=== PATIENT | female | born 1980 | race Caucasian/White ===

== ENCOUNTER 2016-11-04 14:56 | Emergency (ER) ==
--- NOTE | 2016-11-04 15:41 | PROVIDER DOCUMENTATION ---
HPI-Musculoskeletal Pain/Inj - GENERAL Chief Complaint: Neck Pain Stated Complaint: LEFT SIDE NUMBNESS,LIGHTHEADED Time Seen by Provider: 11/04/16 15:08 Source: patient - HX OF PRESENT ILLNESS-MUSKULOSKELTAL Nature of Presenting Problem: Pt is a 36 yof that presents to er with cc of left sided neck pain sharp that radiated down left arm and left leg and reports left sided numbness now. Reports Had MRI last week reports two bulging disc and states has appointment with ortho spine on November 24. Denies urinary and bladder symptoms. Takes norco daily. Reports took last one today. 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 denies: joint pain, joint swelling, muscle aches Integumentary: reports: no symptoms reported Neurological: reports: numbness. denies: paresthesia, seizure, slurred speech Psychiatric: reports: no symptoms reported Endocrine: reports: no symptoms reported Hematologic/Lymphatic: reports: no symptoms reported Allergic/Immunologic: reports: no symptoms reported All Other Systems: Reviewed and Negative Past History - Adult - PAST MEDICAL HISTORY-ADULT Review of Records: reports: Nursing Assessment Review, Medications Reviewed Major Childhood Illnesses: reports: denies history Musculoskeletal: reports: chronic pain Psychiatric: reports: anxiety - PRIOR SURGERIES/PROCEDURES Surgical/Procedure History: reports: appendectomy, orthopedic (extremity) - IMMUNIZATION STATUS Childhood Immunizations: See Nurse Assessment Flu Vaccine: See Nurse Assessment - SOCIAL HISTORY Smoking: cigarettes, less than 1 pack/day Provider spent 3-5 mins advising pt. on dangers of tobacco.: Discussed manners to quit use, and f/u contacts for add'l counseling. Substance Use: alcohol Physical Exam-Injury Related - Physical Exam-Injury Related Initial Vital Signs Reviewed: Yes General Appearance: appears well, alert, no apparent distress Eyes: PERRL/EOMI, pink conjunctivae Head, Ears, Nose, Mouth & Throat: moist mucous membranes, normal ENT inspection , TMs normal, pharynx normal Neck: full range of motion, supple, normal inspection, muscle spasm (left lateral) Respiratory: chest non-tender, lungs clear, normal breath sounds, no pleuratic chest pain, no respiratory distress, no accessory muscle use Cardiovascular: regular rate, rhythm Abdominal Exam: normal bowel sounds, non tender, soft, no organomegaly, no pulsatile mass Extremity: normal range of motion, non-tender, normal gait Integumentary: normal color, warm/dry Psych/Mental Status: normal mood/affect, normal thought content, normal thought process, oriented x 3 - Glascow Coma Score Best Eye Response ([place]): (4) open spontaneously Best Verbal Response ([place]): (5) oriented Best Motor Response (Renée): (6) obeys commands Renée Total: 15 Progress - PLAN OF CARE/RESULTS Progress/Plan/Lab Results: Reviewed old records which presents pt is a chronic pain pt [facility] Vital Signs - 24 hr 11/04/16 15:00 Temperature 98.1 F Pulse Rate 83 Respiratory 20 Rate Blood Pressure 132/71 O2 Sat by Pulse 100 Oximetry Pt refused blood work,cardiac workup and further imaging reports wants pain medications. - EKG 1 Time of EKG reading by physician:: 15:03 EKG Read and Signed by:: Agustin Ayers EKG Interpretation (*Must complete 3 of following elements*): Normal Rate: 74 Rhythm: nsr [place]: normal QRS: normal Departure - Departure Time of Disposition Order: 15:42 DIAGNOSIS: Neck pain Disposition: HOME 01 Certified Medical Emergency: Emergent Condition: Stable Additional Instructions: Follow up with ortho spine ED Follow Up Instructions: You have been treated by a care provider in the Emergency Department. These instructions are being provided to you so you can have an understanding of how to care for yourself upon discharge. Upon discharge from the Emergency Department, you are responsible for making arrangements for follow-up care by a physician of your choice. Take all prescribed medications as directed. Return to the Emergency Department immediately for any new or worsening symptoms. You may call the Physician Referral phone number at [phone] to obtain a list of Physicians who are taking new patients. Attestation - Scribe Verification/Attestation Scribe:: Matthew Webb Acting as Scribe for:: Agustin Ayers Scribe documention review:: This chart was documented by a scribe and accurately reflects the service the provider performed and the decisions made by the provider. Physician Attestation - Physician Attestation I, the provider, attest to the following statement:: Agustin Ayers Physician documentation Attestation:: This documentation recorded by the scribe accurately reflects the service I personally performed and the decisions made by me.
[2016-11-04 16:15] VITALS: BP 110/73
--- NOTE | 2016-11-05 05:39 | EKG Report ---
Test Performed on : 11/04/2016 3:03:39 PM Test Reason : NUMBNESS Blood Pressure : / mmHG Vent. Rate : 074 BPM Atrial Rate : 074 BPM P-R Int : 154 ms QRS Dur : 094 ms QT Int : 384 ms P-R-T Axes : 017 063 019 degrees QTc Int : 426 ms Normal sinus rhythm. Normal ECG When compared with ECG of 17-MAR-2015 15:38, No significant change was found Unconfirmed Result
== END 2016-11-04 16:14 | disposition home or self-care (01) ==
LOC: ED 14:56
DX: M54.2 Cervicalgia (principal); M79.602 Pain in left arm; M79.605 Pain in left leg; R20.0 Anesthesia of skin; R42 Dizziness and giddiness; M62.838 Other muscle spasm; G89.29 Other chronic pain; F17.210 Nicotine dependence, cigarettes, uncomplicated; Z71.6 Tobacco abuse counseling
CPT/HCPCS: 93005